=== PATIENT | male | born 1995 | race Caucasian/White ===

== ENCOUNTER 2019-03-08 23:11 | Emergency (ER) | payer OTHER ==
[~2019-03-08] VITALS: Ht 180.3 cm; Wt 59.0 kg
[2019-03-08] MEDS ORDERED: LEXAPRO 10 MG T10 M2 PO (23:18)
[2019-03-08] MEDS ORDERED: VYVANSE10 MG PO (23:19)
[2019-03-09 00:19] VITALS: BP 119/66
== END 2019-03-09 00:20 | disposition home or self-care (01) ==
LOC: M.ERS 23:11
DX: S50.12XA Contusion of left forearm, initial encounter (principal); Z91.048 Other nonmedicinal substance allergy status; Z98.890 Other specified postprocedural states; W22.8XXA Striking against or struck by other objects, initial encounter; Y92.89 Other specified places as the place of occurrence of the external cause; Y93.89 Activity, other specified; Y99.8 Other external cause status